=== PATIENT | male | born 1970 | race Caucasian/White ===

== ENCOUNTER 2018-03-13 03:26 | Emergency (ER) | payer OTHER ==
--- NOTE | 2018-03-13 04:18 | ER Document Report ---
ED ENT - General Chief Complaint: Eye Pain Stated Complaint: EYE PAIN Time Seen by Provider: 03/13/18 04:11 Notes: Patient is a 48-year-old inmate that comes to the emergency department for chief complaint of left eye pain and left ear pain. Symptoms have been present for 3 days. He denies discharge, he reports occasional blurriness, he does not wear visual correction, he denies injury, fever, nausea or vomiting, congestion. No drainage from the ear, no hearing loss. He denies any daily medications, denies any medical history. - Related Data Allergies/Adverse Reactions: No Known Allergies Allergy (Unverified 03/13/18 03:29) Past Medical History - General Information source: Patient - Social History Smoking Status: Former Smoker Drug Abuse: None Lives with: Alone, Other - Incarcerated Family History: Reviewed & Not Pertinent - Immunizations Hx Diphtheria, Pertussis, Tetanus Vaccination: Yes Review of Systems - Review of Systems Constitutional: No symptoms reported EENT: See HPI Cardiovascular: No symptoms reported Respiratory: No symptoms reported Gastrointestinal: No symptoms reported Genitourinary: No symptoms reported Male Genitourinary: No symptoms reported Musculoskeletal: No symptoms reported Skin: No symptoms reported Hematologic/Lymphatic: No symptoms reported Neurological/Psychological: No symptoms reported Physical Exam - Vital signs Vitals: Temp Pulse Resp BP Pulse Ox 97.6 F 65 18 117/78 100 03/13/18 03:31 03/13/18 03:31 03/13/18 03:31 03/13/18 03:31 03/13/18 03:31 - Notes Notes: GENERAL: Alert, interacts well. No acute distress. HEAD: Normocephalic, atraumatic. EYES: Pupils equal, round, and reactive to light. Extraocular movements intact. There is injection of the sclera of the left eye, there is some discharge noted over the eyelashes and over the eye which is yellowish in color, no swelling of the eyelids, no fluorescein uptake, negative Juhi sign, no foreign body embedded, no dendrites. Left lower eyelid laterally appears to have a stye. No noted tenderness. ENT: Oral mucosa moist, tongue midline. [Nares patent, no nasal septal hematoma , TM's intact.] There is some erythema over the left ear canal, tenderness over the tragus, no tenderness noted of the mastoid, no swelling otherwise, unremarkable ear exam otherwise. NECK: Full range of motion. Supple. Trachea midline. LUNGS: Clear to auscultation bilaterally, no wheezes, rales, or rhonchi. No respiratory distress. HEART: Regular rate and rhythm. No murmur ABDOMEN: Soft, non-tender. Non-distended. Bowel sounds present in all 4 quadrants. EXTREMITIES: Moves all 4 extremities spontaneously. No edema, normal radial and dorsalis pedis pulses bilaterally. No cyanosis. BACK: no cervical, thoracic, lumbar midline tenderness. No saddle anesthesia, normal distal neurovascular exam. NEUROLOGICAL: Alert and oriented x3. Normal speech. [cranial nerves II through XII grossly intact]. PSYCH: Normal affect, normal mood. SKIN: Warm, dry, normal turgor. No rashes or lesions noted. Course - Re-evaluation Re-evalutation: Examination appears to show a stye, conjunctivitis, and left otitis externa. Unremarkable ear, throat, eye exam otherwise with no foreign bodies, no dendrites, no concerning findings otherwise. No rash noted over the face or ears. No evidence of herpes at this time. Discussed results, treatment with drops including Polytrim and Ciprodex which were provided at this time, discussed dosing, follow-up, and return precautions. Patient states understanding and agreement. - Vital Signs Vital signs: Temp Pulse Resp BP Pulse Ox 97.7 F 65 18 109/74 98 03/13/18 06:19 18 06:19 03/13/18 06:19 03/13/18 06:19 03/13/18 06:19 Discharge - Discharge Clinical Impression: Left eye pain, Left ear pain Condition: Stable Disposition: HOME, SELF-CARE Additional Instructions: The evaluation of your thigh shows both conjunctivitis and a stye. Recommendation is to apply the eyedrops into both eyes, 1 drop 4 times a day for 7 days, apply warm compress to the left eye for the stye and this should resolve with time. This is contagious (conjunctivitis), perform handwashing, avoid rubbing eyes. Follow-up with the ophthalmology referral. The left ear shows otitis externa, ear canal infection, use Ciprodex drops 4 drops twice a day for 7 days. Return if you worsen including swelling of the eyelids, loss of vision, fever, swelling behind the ear, vomiting, or any other concerning or worsening symptoms.
[2018-03-13] MEDS ORDERED: POLYMYXIN B SULFATE/TMP OPH SOLN 10 ML OU ONE (04:54)
[2018-03-13] MEDS ORDERED: CIPROFLOXACIN HCL/DEXAMETH OTIC DROP 7.5 ML AS ONE (04:55)
[2018-03-13] MEDS ORDERED: POLYMYXIN B SULFATE/TMP OPH SOLN 10 ML ONE (06:15)
[2018-03-13 06:24] VITALS: BP 109/74
== END 2018-03-13 06:52 | disposition home or self-care (01) ==
LOC: ER 03:26
DX: H00.029 Hordeolum internum unspecified eye, unspecified eyelid (principal); H10.9 Unspecified conjunctivitis; H60.92 Unspecified otitis externa, left ear; H57.12 Ocular pain, left eye; H92.02 Otalgia, left ear; Z87.891 Personal history of nicotine dependence
CPT/HCPCS: 99283; J3490 ×2